=== PATIENT | female | born 1980 | race Caucasian/White ===

== ENCOUNTER 2022-05-15 11:25 | Outpatient (REF) | payer MEDICAID, SELFPAY ==
[2022-05-16 14:00] LABS: COVID-19 RT-PCR UVMMC Result Negative (Negative)
== END 2022-05-15 11:26 | disposition home or self-care (01) ==
LOC: NCHCN 11:25
PROVIDERS: PCP Family Medicine; Visit Provider Nurse Practitioner Family
DX: Z20.822 Contact with and (suspected) exposure to COVID-19 (principal)
CPT/HCPCS: U0003

== ENCOUNTER 2025-07-01 15:46 | Outpatient (REF) | payer MEDICAID, SELFPAY ==
[2025-07-01 21:16] LABS: WBC 0-2 HPF (0-5)
[2025-07-03 09:54] LABS: HIV-1/2 Ag & Ab Screen Negative (Negative)
[2025-07-04 08:06] LABS: Syphilis Serology (RPR) Negative (Negative)
[2025-07-04 10:44] LABS: Hepatitis C Ab w Rflx HCV PCR Negative (Negative)
[2025-07-05 11:30] LABS: Chlamydia Result Invalid (Negative); GC Result Invalid (Negative)
== END 2025-07-01 15:47 | disposition home or self-care (01) ==
LOC: LBN 15:46
PROVIDERS: PCP Family Medicine; Visit Provider Physician Assistant Medical
DX: R30.0 Dysuria (principal); N89.8 Other specified noninflammatory disorders of vagina
CPT/HCPCS: 86803; 87389; 87491; 87591; 81015; 86592; 87086; 87480; 87510; 87660

== ENCOUNTER 2025-07-05 14:56 | Outpatient (REF) | payer MEDICAID, SELFPAY ==
[2025-07-07 11:20] LABS: Chlamydia Result Negative (Negative); GC Result Negative (Negative)
== END 2025-07-05 14:57 | disposition home or self-care (01) ==
LOC: LBN 14:56
PROVIDERS: PCP Family Medicine; Visit Provider Nurse Practitioner Family
DX: Z11.3 Encounter for screening for infections with a predominantly sexual mode of transmission (principal)
CPT/HCPCS: 87491; 87591